=== PATIENT | female | born 1985 | race Caucasian/White ===

== ENCOUNTER 2016-05-25 11:52 | Inpatient (IN) | payer OTHER ==
[~2016-05-25] VITALS: Ht 167.6 cm; Wt 68.2 kg
[~2016-05-25 11:52] MED LIST: CLINDAMYCIN HC300 MG PO; CONZIP200 MG PO; ENDOCET 5-3251 EACH PO; IBUPROFEN800 MG PO; MOTRIN600 MG PO; PERCOCET 5/31 TABLET PO
[2016-05-25 12:30] VITALS: BP 122/67
[2016-05-25 12:45] VITALS: BP 160/71
[2016-05-25 12:56] VITALS: BP 131/63
[2016-05-25 13:11] VITALS: BP 116/71
[2016-05-25 13:14] LABS: EOSINOPHIL (%) 0.4 % (0-5); EOSINOPHIL COUNT 0.1 K/uL (0-0.3); HEMATOCRIT 33.9 % (36.0-46.0); IMMATURE GRANULOCYTE (%) 0.4 % (0.0-0.7); IMMATURE GRANULOCYTE COUNT 0.1 K/uL; LYMPHOCYTE COUNT 1.6 K/uL (1.0-2.8); MCH 31.7 PG (29.0-34.0); MCHC 34.2 G/DL (30.0-36.0); MCV 92.6 FL (83-99); MONOCYTE (%) 5.8 % (3-12); MONOCYTE COUNT 0.8 K/uL (0-0.8); NEUTROPHIL (%) 81.1 % (45-76); NEUTROPHIL COUNT 10.9 K/uL (1.8-6.4); PLATELET COUNT 133 K/uL (156-360); RBC DIS.WIDTH-CV 14.1 % (11.8-14.6); RBC DIS.WIDTH-SD 47.7 % (39-53); RED BLOOD COUNT 3.66 M/uL (3.80-5.20); WHITE BLOOD COUNT 13.4 K/uL (4.1-10.2)
[2016-05-25 13:26] VITALS: BP 122/73
[2016-05-25 13:42] LABS: ANION GAP 11 MEQ/L (2-14); CHLORIDE 103 MEQ/L (99-109); POTASSIUM 4.3 MEQ/L (3.7-5.4); SAMPLE HEMOLYSIS CHECK 0; SAMPLE ICTERIC CHECK 0; SAMPLE LIPEMIA CHECK 0; SODIUM 137 MEQ/L (136-147); TOTAL BILIRUBIN 0.6 MG/DL (0.0-1.0)
[2016-05-25 13:47] LABS: ANTI-HIV (AIDS STAT TEST) NONREACTIVE; INTERNAL CONTROL VALID? YES
[2016-05-25 13:48] LABS: ALKALINE PHOSPHATASE 177 IU/L (3-129); GFR ESTIMATE (CALCULATED) > 59 mL/min/; GLUCOSE 88 mg/dL (70-99); UREA NITROGEN (BUN) 5 mg/dL (9-23)
[2016-05-25 14:00] LABS: HBSG INDEX 0.25
[2016-05-25 14:01] LABS: HIV INDEX 0.05; HIV-1/2 AB/AG COMBO Nonreactive
[2016-05-25 14:08] VITALS: BP 123/75
[2016-05-25 16:06] LABS: AMPHETAMINES QUANT VALUE 0 NG/ML; BARBITUATES QUANT VALUE 0 NG/ML; BENZODIAZEPINES QUANT VALUE 0 NG/ML; BENZODIAZEPINES, URINE SCREEN Negative (200 ng/mL); OPIATES QUANTITATIVE VALUE 0 NG/ML; PHENCYCLIDINE QUANT VALUE 0 NG/ML
[2016-05-26 11:33] LABS: TREPONEMA ANTIBODY NEGATIVE (NEGATIVE)
== END 2016-05-25 16:45 | disposition home or self-care (01) | DRG 775 ==
LOC: EME 11:52 → EDSTATUS 12:14 → LDRP-OP 12:15 → 2WEST 12:16
PROVIDERS: Advanced Practice Midwife
DX: O99.334 Smoking (tobacco) complicating childbirth (principal); F17.210 Nicotine dependence, cigarettes, uncomplicated; O99.324 Drug use complicating childbirth; F12.10 Cannabis abuse, uncomplicated; O77.0 Labor and delivery complicated by meconium in amniotic fluid; Z37.0 Single live birth
CPT/HCPCS: 80053; 80306 90; 85025; 86703; 86762; 86780; 87340; 88305; J1050

== ENCOUNTER 2016-10-24 14:27 | Emergency (ER) | payer OTHER ==
[~2016-10-24] VITALS: Ht 167.6 cm; Wt 57.2 kg
[2016-10-24] MEDS ORDERED: PERCOCET 5/31 TABLET PO (16:04)
[2016-10-24] MEDS ORDERED: FLEXERIL10 MG PO (16:04)
[2016-10-24 16:34] VITALS: BP 127/65
== END 2016-10-24 16:37 | disposition home or self-care (01) ==
LOC: EME 14:27
DX: S42.022A Displaced fracture of shaft of left clavicle, initial encounter for closed fracture (principal); W10.9XXA Fall (on) (from) unspecified stairs and steps, initial encounter; F17.200 Nicotine dependence, unspecified, uncomplicated
CPT/HCPCS: 73030; 99281; 99284